=== PATIENT | female | born 1995 | race Two or more races ===

== ENCOUNTER 2018-09-12 11:50 | Emergency (ER) | payer OTHER ==
[2018-09-12 12:09] VITALS: BP 114/81; PULSE 77; TEMP 97.7; BMI 29.2
--- NOTE | 2018-09-12 12:30 | PDOC ---
History of Present Illness - General History Source: Patient Exam Limitations: No Limitations <NazianicoleMayela lagosecca - Last Filed: 09/12/18 21:01> <Yoselin Reyes - Last Filed: 09/13/18 08:34> - General Chief Complaint: Pain, Acute Stated Complaint: RT FLANK PAIN Time Seen by Provider: 09/12/18 12:18 Past History - Travel Traveled outside of the country in the last 30 days: No Close contact w/someone who was outside of country & ill: No - Suicide/Smoking/Psychosocial Hx Smoking History: Never smoked <HugoMayela lagosecca - Last Filed: 09/12/18 21:01> <Yoselin Reyes - Last Filed: 09/13/18 08:34> - Past Medical History Allergies/Adverse Reactions: Allergies Allergy/AdvReac Type Severity Reaction Status Date / Time No Known Allergies Allergy Verified 09/12/18 12:05 Home Medications: Ambulatory Orders NK [No Known Home Medication] 09/12/18 Review of Systems - Review of Systems Able to Perform ROS?: Yes Comments:: 09/12/18 17:01 CONSTITUTIONAL: Absent: fever, chills, diaphoresis, generalized weakness, malaise, loss of appetite HEENT: Absent: rhinorrhea, nasal congestion, throat pain, throat swelling, difficulty swallowing, mouth swelling, ear pain, eye pain, visual Changes CARDIOVASCULAR: Absent: chest pain, loss of consciousness, palpitations, irregular heart rate, peripheral edema RESPIRATORY: Absent: cough, shortness of breath, dyspnea with exertion, orthopnea, wheezing, stridor, hemoptysis GASTROINTESTINAL: Absent: abdominal pain, abdominal distension, nausea, vomiting, diarrhea, constipation, melena, hematochezia GENITOURINARY: Present: R flank pain Absent: dysuria, frequency, urgency, hesitancy, hematuria , flank pain, genital pain MUSCULOSKELETAL: Absent: myalgia, arthralgia, joint swelling SKIN: Absent: rash, itching, pallor NEUROLOGIC: Absent: headache, focal weakness or paresthesias, dizziness, unsteady gait, seizure, mental status changes, bladder or bowel incontinence PSYCHIATRIC: Absent: anxiety, depression, suicidal or homicidal ideation, hallucinations. Is the patient limited Slovak proficient: No <Diana Forrest - Last Filed: 09/12/18 21:01> *Physical Exam - Vital Signs Last Vital Signs Temp Pulse Resp BP Pulse Ox 97.7 F 77 18 114/81 98 09/12/18 12:07 09/12/18 12:07 09/12/18 12:07 09/12/18 12:07 09/12/18 12:07 - Physical Exam Comments: 09/12/18 17:03 GENERAL: Well developed, well nourished. Awake and alert. No acute distress. HEENT: Normocephalic, atraumatic. PERRLA, EOMI. No conjunctival pallor. Sclera are non- icteric. Moist mucous membranes. Oropharynx is clear. NECK: Supple. Full ROM. No JVD. Carotid pulses 2+ and symmetric, without bruits. No thyromegaly. No lymphadenopathy. CARDIOVASCULAR: Regular rate and rhythm. No murmurs, rubs, or gallops. Distal pulses are 2+ and symmetric. PULMONARY: No evidence of respiratory distress. Lungs clear to auscultation bilaterally. No wheezing, rales or rhonchi. ABDOMINAL: Soft. Non-tender. Non-distended. No rebound or guarding. No organomegaly. Normoactive bowel sounds. MUSCULOSKELETAL Normal range of motion at all joints. No bony deformities or tenderness. (+) R CVA tenderness with TTP of the R flank. EXTREMITIES: No cyanosis. No clubbing. No edema. No calf tenderness. SKIN: Warm and dry. Normal capillary refill. No rashes. No jaundice. NEUROLOGICAL: Alert, awake, appropriate. Cranial nerves 2-12 intact. No deficits to light touch and temperature in face, upper extremities and lower extremities. No motor deficits in the in face, upper extremities and lower extremities. Normoreflexic in the upper and lower extremities. Normal speech. Toes are down- going bilaterally. Gait is normal without ataxia. PSYCHIATRIC: Cooperative. Good eye contact. Appropriate mood and affect. <Diana Forrest - Last Filed: 09/12/18 21:01> - Vital Signs Last Vital Signs Temp Pulse Resp BP Pulse Ox 97.7 F 77 18 114/81 98 09/12/18 12:07 09/12/18 12:07 09/12/18 12:07 09/12/18 12:07 09/12/18 12:07 <Yoselin Reyes - Last Filed: 09/13/18 08:34> ED Treatment Course - LABORATORY CBC & Chemistry Diagram: 09/12/18 13:01 09/12/18 13:01 <Diana Forrest - Last Filed: 09/12/18 21:01> - LABORATORY CBC & Chemistry Diagram: 09/12/18 13:01 09/12/18 13:01 - ADDITIONAL ORDERS Additional order review: 09/12/18 13:01 RBC 4.23 MCV 81.4 MCHC 33.5 RDW 13.8 MPV 8.8 Neutrophils % 83.1 H Lymphocytes % 13.9 Monocytes % 2.4 L Eosinophils % 0.2 Basophils % 0.4 - Medications Given in the ED: ED Medications Discontinued Medications Generic Name Dose Route Start Last Admin Trade Name Jerardo PRN Reason Stop Dose Admin Sodium Chloride 1,000 mls @ 1,000 mls/hr 09/12/18 12:31 09/12/18 13:08 Normal Saline - IV 09/12/18 13:30 1,000 mls/hr ASDIR STA Administration Sodium Chloride 1,000 mls @ 1,000 mls/hr 09/12/18 15:00 09/12/18 16:08 Normal Saline - IV 09/12/18 15:59 1,000 mls/hr ASDIR STA Administration Ketorolac Tromethamine 15 mg 09/12/18 12:31 09/12/18 12:54 Toradol Injection - IVPUSH 09/12/18 12:32 15 mg ONCE ONE Administration Ondansetron HCl 4 mg 09/12/18 12:31 09/12/18 12:54 Zofran Injection IVPUSH 09/12/18 12:32 4 mg ONCE ONE Administration <Yoselin Reyes - Last Filed: 09/13/18 08:34> Medical Decision Making - Medical Decision Making 09/12/18 14:05 The patient is a 23-year-old female with no past medical history who presents to the ER today for 1 day of right flank pain. The patient states that her pain started last night after her menstrual cycle began. She states her cycles are regular and her last menstrual cycle before this one was the first week in May. she notes that today she had a sudden sharp pain on her right side. She characterizes the pain as cramping. She did not take any medication to help her pain before arrival in the ER. Denies fevers, chills, nausea, vomiting, frequency, urgency, dysuria and hematuria. A/P: Right-sided flank pain On exam patient with positive CVA tenderness on the right as well as palpable flank pain. Concern for renal stone versus pyelonephritis Basic labs, urine to be obtained. CT renal scan ordered Reevaluate 09/12/18 18:23 CT renal scan was negative for stones at this time. Urine is negative for infection. Incidental finding on CAT scan shows a right-sided ovarian cyst pelvic and bladder ultrasound ordered to evaluate for torsion Unofficial read the cyst measures 4 cm x 4 cm x 3 cm, there is good flow to the ovary. Suspect that the pain was due to the patient's ovarian cyst. Recommend NSAIDs and PLAN NURSE follow-up Strict return precautions given I discussed the physical exam findings, ancillary test results and final diagnoses with the patient. I answered all of the patient's questions. The patient was satisfied with the care received and felt comfortable with the discharge plan and treatment plan. The Patient agrees to follow up with the primary care physician/specialist within 24-72 hours. Return precautions were given. <Diana Forrest - Last Filed: 09/12/18 21:01> *DC/Admit/Observation/Transfer - Discharge Dispostion Decision to Admit order: No <Diana Forrest - Last Filed: 09/12/18 21:01> - Attestations Physician Attestion: I reviewed the case with the mid-level practitioner and agree with the mid- level practitioner's assessment, diagnosis and disposition. <Yoselin Reyes - Last Filed: 09/13/18 08:34> Diagnosis at time of Disposition: Ovarian cyst Qualifiers: Laterality: right Qualified Code(s): N83.201 - Unspecified ovarian cyst, right side - Discharge Dispostion Disposition: HOME Condition at time of disposition: Stable - Referrals Referrals: Danielle Rhodes DO [Staff Physician] - - Patient Instructions Printed Discharge Instructions: DI for Ovarian Cyst Additional Instructions: You were evaluated for your flank pain today You have a [id number] ovarian cyst on the R side which is most likely causing your pain. Please follow up with CREW LEADER/CONTROL ROOM OPERATOR this week, a referral has been provided You may take Motrin 600mg every 6 hours as needed for pain Return to the ER if you have worsening pain, fever, vomiting, or if you have any changes in your symptoms - Post Discharge Activity Forms/Work/School Notes: Back to Work
[2018-09-12] MEDS ORDERED: KETOROLAC TROMETHAMINE 15 MG/ML VIAL IVPUSH ONE (12:31)
[2018-09-12] MEDS ORDERED: SODIUM CHLORIDE 1,000 ML IV STA ×2 (12:31→15:00)
[2018-09-12] MEDS ORDERED: ONDANSETRON 4 MG/2 ML VIAL IVPUSH ONE (12:31)
[2018-09-12] MEDS ORDERED: KETOROLAC TROMETHAMINE 15 MG/ML VIAL ONE (12:52)
[2018-09-12] MEDS ORDERED: ONDANSETRON 4 MG/2 ML VIAL ONE (12:53)
[2018-09-12 13:25] LABS: BASO % 0.4 % (0-2.0); EOS % 0.2 % (0-4.5); HEMATOCRIT 34.4 % (32.4-45.2); HEMOGLOBIN 11.5 GM/dL (10.7-15.3); LYMPH % 13.9 % (8-40); MCH 27.2 pg (25.7-33.7); MCHC 33.5 g/dl (32.0-36.0); MEAN CELL VOLUME 81.4 fl (80-96); MEAN PLT VOLUME 8.8 fl (7.5-11.1); MONO % 2.4 % (3.8-10.2); NEUT % 83.1 % (42.8-82.8); PLATELET COUNT 289 K/MM3 (134-434); RBC 4.23 M/mm3 (3.60-5.2); RDW 13.8 % (11.6-15.6); WHITE BLOOD COUNT 8.5 K/mm3 (4.0-10.0)
[2018-09-12 13:45] LABS: HCG,QUALITATIVE URINE Negative
[2018-09-12 13:46] LABS: EPI CELLS 1.1 /HPF (0-5/HPF); HYALINE CASTS 4 /lpf (0-8); PH,URINE 5.5 (5.0-8.0); URINE APPEARANCE CLEAR; URINE BACTERIA 1.5 /hpf (NEGATIVE); URINE BILIRUBIN NEGATIVE (NEGATIVE); URINE COLOR YELLOW; URINE GLUCOSE (UA) NEGATIVE (NEGATIVE); URINE KETONE NEGATIVE (NEGATIVE); URINE LEUK ESTERASE NEGATIVE (NEGATIVE); URINE NITRITE NEGATIVE (NEGATIVE); URINE PROTEIN NEGATIVE (NEGATIVE); URINE RBC 7 /hpf (0-4); URINE WBC 0 /hpf (0-5)
[2018-09-12 15:24] LABS: ALBUMIN 4.1 g/dl (3.4-5.0); BILIRUBIN,TOTAL 0.3 mg/dL (0.2-1); BLOOD UREA NITROGEN 12.3 mg/dL (7-18); CALCIUM 8.8 mg/dL (8.5-10.1); CREATININE 0.6 mg/dL (0.55-1.3); POTASSIUM 4.1 mmol/L (3.5-5.1)
== END 2018-09-12 18:33 | disposition home or self-care (01) ==
LOC: JER 11:50
PROC: 3E0333Z Introduction of Anti-inflammatory into Peripheral Vein, Percutaneous Approach (ICD-10-PCS; principal; 2018-09-12)
PROC: 3E033GC Introduction of Other Therapeutic Substance into Peripheral Vein, Percutaneous Approach (ICD-10-PCS; 2018-09-12)
PROC: 3E0337Z Introduction of Electrolytic and Water Balance Substance into Peripheral Vein, Percutaneous Approach (ICD-10-PCS; 2018-09-12)
DX: N83.201 Unspecified ovarian cyst, right side (principal)
CPT/HCPCS: 36415; 74176-TC; 76856-TC; 80053; 81003; 84703; 85025; 99283-25; J7030

== ENCOUNTER 2019-05-19 05:13 | Day surgery (SDC) | payer OTHER ==
[2019-05-18 10:07] VITALS: BMI 27.3
[~2019-05-19 05:13] MED LIST: ceFAZolin SODIUM 1 GM VIAL IVPB ONE
[2019-05-19] MEDS ORDERED: IBUPROFEN 600 MG TABLET (FP) PO PRN (08:37)
[2019-05-19] MEDS ORDERED: ONDANSETRON 4 MG/2 ML VIAL IVPUSH PRN (08:37)
[2019-05-19] MEDS ORDERED: oxyCODONE HCL 5 MG TABLET PO PRN (08:37)
[2019-05-19] MEDS ORDERED: IBUPROFEN 800 MG/8 ML IJ IVPB PRN (08:37)
--- NOTE | 2019-05-19 08:37 | HP ---
History & Physical Update - History History: No Change (Consent signed and witnessed After procedure was fully reviewed with the patient) - Physical Physical: No Change - Assessment Assessment: No Change - Plan Plan: No Change
[2019-05-19] MEDS ORDERED: ELECTROLYTE-148 SOLN 1,000 ML IV SCH (08:45)
--- NOTE | 2019-05-19 08:47 | OP ---
Operative Note - Note: Operative Date: 05/19/19 Pre-Operative Diagnosis: 24yo P0 with Right ovarian cyst, pain Operation: Laparoscopic ovarian cystectomy Findings: Paratubal cyst, densely adherent to right fallopian tube Drained clear fluid upon removal inside the endocatch bag Post-Operative Diagnosis: Same as Pre-op (Paratubal cyst) Surgeon: Yumi See Underwear Trimmer: Dev King Anesthesiologist/PHOTOGRAPHIC EDITOR: Jadiel Burger Anesthesia: General Specimens Removed: Paratubal cyst with cyst wall Estimated Blood Loss (mls): 10 Drains, Volume Out (mls): 150 Fluid Volume Replaced (mls): 850 Operative Report Dictated: Yes
[2019-05-19] MEDS ORDERED: MIDAZOLAM HCL 2 MG/2 ML SINGLE DOSE VIAL ONE (11:05)
[2019-05-19] MEDS ORDERED: ROCURONIUM BROMIDE 50 MG/5 ML SYRINGE ONE (11:05)
[2019-05-19] MEDS ORDERED: PROPOFOL 20 ML ONE (11:05)
[2019-05-19] MEDS ORDERED: fentaNYL CITRATE 250 MCG/5 ML VIAL ONE (11:05)
[2019-05-19] MEDS ORDERED: LIDOCAINE HCL/PF 2% SDV 5ML VIAL ONE (11:07)
[2019-05-19] MEDS ORDERED: DEXAMETHASONE SOD PHOSPHATE 4 MG/1 ML VIAL ONE (11:07)
[2019-05-19] MEDS ORDERED: ceFAZolin SODIUM 1 GM VIAL ONE (11:46)
[2019-05-19] MEDS ORDERED: ceFAZolin SODIUM 1 GM VIAL IVPB ONE (11:50)
[2019-05-19] MEDS ORDERED: LACTATED RINGERS SOLUTION 1,000 ML IV SCH (12:45)
[2019-05-19] MEDS ORDERED: NEOSTIGMINE METHYLSULFATE 0.5 MG/ML - 10 ML MDV ONE (13:02)
[2019-05-19] MEDS ORDERED: GLYCOPYRROLATE 0.2 MG/1 ML VIAL ONE (13:02)
[2019-05-19] MEDS ORDERED: KETOROLAC TROMETHAMINE 30 MG/1 ML VIAL ONE (13:02)
[2019-05-19] MEDS ORDERED: BUPIVACAINE HCL/PF 0.5% (5 MG/ML) 30 ML VIAL IJ ONE (13:17)
[2019-05-19] MEDS ORDERED: ONDANSETRON 4 MG/2 ML VIAL IVPUSH ONE (15:30)
[2019-05-19] MEDS ORDERED: ONDANSETRON 4 MG/2 ML VIAL ONE ×2 (15:37→17:11)
[2019-05-19 19:09] VITALS: BP 120/69; PULSE 108; TEMP 95.4
--- NOTE | 2019-05-20 11:25 | PATH ---
Surgical Pathology Report Patient Name: WILTON NORRIS [facility]. Rec. #: [id number] /Age/Gender: 1995 (Age: 24) / F Account: [id number] Location: [facility] SURGICAL Taken: 05/19/2019 Received: 05/19/2019 Reported: 05/20/2019 Physicians: Yumi See M.D. Specimen(s) Received RIGHT OVARIAN CYST AND WALL Clinical History Right ovarian cyst Final Diagnosis OVARIAN CYST AND WALL, RIGHT, CYSTECTOMY: CONSISTENT WITH PARATUBAL CYST. TUBO-OVARIAN ADHESIONS. Electronically Signed Estrella Pang M.D. Gross Description Received in formalin labeled "right ovarian cyst and wall," are 2 cervantes red portion of soft tissue measuring 2.6 x 1.4 x 0.8 cm and 4.9 x 2.4 x 0.6 cm, consistent with portions of cyst wall. No excrescences are identified. Fashion Design Professor sections are submitted in 3 cassettes as follows: 1-smaller portion of tissue; 2-3-larger portion of tissue. /05/19/2019 saudi/05/19/2019
--- NOTE | 2019-05-20 14:33 | OP ---
DATE OF OPERATION: 05/19/2019 PREOPERATIVE DIAGNOSIS: A 24-year-old, para 0, with right ovarian cyst, pelvic pain. OPERATION: Laparoscopic ovarian cystectomy. FINDINGS: Paratubal cyst densely adherent to right fallopian tube, drained clear fluid upon removal inside the Endo Catch bag. POSTOPERATIVE DIAGNOSIS: A 24-year-old, para 0, with right ovarian cyst, pelvic pain, and a paratubal cyst. SURGEON: Negro See MD LEGAL INVESTIGATOR: Dev King MD ANESTHESIOLOGIST: Jadiel Burger MD ANESTHESIA: General. SPECIMEN REMOVED: Paratubal cyst with cyst wall. DESCRIPTION OF THE OPERATIVE PROCEDURE: After assuring informed consent, patient was brought to the operating room where she was placed in dorsal lithotomy position. Abdomen and perineum were prepped and draped in sterile fashion. Hulka manipulator was placed through the cervix. The Gayle catheter was placed sterilely. Some difficulty was encountered, during use of single-tooth tenaculum, which tore through the anterior lip of the cervix, and required [id number] stitch placed on the cervix which created hemostasis. Subsequently, the attention was brought to the abdomen. The laparoscope of 5 mm was assembled . The towel clamps were placed periumbilically. A 5-mm incision was made inside the umbilicus and Veress needle was placed. Proper placement was assured with saline drop test and appropriate intra-abdominal pressure was encountered upon insufflation of the abdomen with CO2 gas. Abdomen was distended. Subsequently, the 5-mm camera was placed inside the Optiview trocar under direct visualization. Two additional trocars were placed, right lower quadrant 5 mm and left lower quadrant 11-mm trocars under direct visualization. The patient was placed into Trendelenburg position. Approximately 4-5 cm paratubal cyst was visualized. It was the entire length of the right fallopian tube splayed over the cyst. LigaSure was used to dissect the tube off of the cyst without any damage to the fallopian tube. Cyst was dissected and placed into the posterior cul-de-sac. Endo Catch bag was introduced through the left lower quadrant trocar. The cyst was placed in the bag and subsequently removed by direct aspiration and deflation of the cyst. Cyst contents were not spilled in the abdominal cavity. Subsequently, all gas was allowed to exit the abdomen. The fascia was closed with 0 Vicryl. Skin was closed with 4-0 Monocryl. All instruments were removed from abdomen, cervix, and vagina. The Gayle catheter was removed, as well. All instrument and sponge counts were correct x2. Patient was brought to the recovery room in stable condition. Estimated blood loss was 10 mL. Patient put out 150 mL of urine and received 850 mL of IV fluids. NEGRO SEE M.D. [id number]
== END 2019-05-19 18:45 | disposition home or self-care (01) ==
LOC: JASU-SURG 05:13
PROVIDERS: ATTEND Obstetrics & Gynecology
PROC: 0UB04ZZ Excision of Right Ovary, Percutaneous Endoscopic Approach (ICD-10-PCS; principal; 2019-05-19 10:45)
DX: N83.201 Unspecified ovarian cyst, right side (principal); N83.8 Other noninflammatory disorders of ovary, fallopian tube and broad ligament
CPT/HCPCS: 88304-TC; 94760

== ENCOUNTER 2021-07-22 14:13 | Emergency (ER) | payer BC, OTHER ==
[2021-07-22 14:22] VITALS: BP 119/76; PULSE 97; TEMP 97.6; BMI 26.5
== END 2021-07-22 15:30 | disposition home or self-care (01) ==
LOC: JERFT 14:13
DX: L05.91 Pilonidal cyst without abscess (principal)
CPT/HCPCS: 99281-25